=== PATIENT | male | born 1960 | race Caucasian/White ===

== ENCOUNTER 2018-08-20 13:51 | Emergency (ER) | payer OTHER ==
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
[2018-08-20 14:52] VITALS: BP 110/80
== END 2018-08-20 15:45 | disposition home or self-care (01) ==
DX: S06.0X0A Concussion without loss of consciousness, initial encounter (principal); V47.5XXA Car driver injured in collision with fixed or stationary object in traffic accident, initial encounter; Y92.410 Unspecified street and highway as the place of occurrence of the external cause; Y99.8 Other external cause status